=== PATIENT | female | born 1990 | race Caucasian/White ===

== ENCOUNTER 2020-07-24 00:16 | Emergency (ER) | payer BC ==
[~2020-07-24 00:16] MED LIST: BENTYL20 MG PO; CARAFATE1 GM/10 ML PO; PROTONIX40 MG PO; TRAMADOL HCL50 MG PO
[2020-07-24 02:24] LABS: HEMOGLOBIN 13.8 gm/dl (12.3-15.3); RED BLOOD COUNT 4.63 M/UL (4.00-5.10); WHITE BLOOD COUNT 8.9 K/UL (4.5-11.0)
[2020-07-24 02:36] LABS: BUN/CREATININE RATIO 24 (0-10)
[2020-07-24] MEDS ORDERED: ZOFRAN4 MG PO (04:00)
[2020-07-24] MEDS ORDERED: BENTYL 10MG CAP10 MG PO (04:05)
[2020-07-24 05:30] LABS: RED BLOOD COUNT 4.35 M/UL (4.00-5.10); WHITE BLOOD COUNT 9.6 K/UL (4.5-11.0)
[2020-07-24 06:17] LABS: BUN/CREATININE RATIO 18 (0-10)
[2020-07-24] MEDS ORDERED: IBUPROFEN800 MG PO (07:01)
== END 2020-07-24 11:02 | disposition home or self-care (01) ==
LOC: ER1 00:16
PROVIDERS: Emergency Medicine
DX: R10.84 Generalized abdominal pain (principal); R11.2 Nausea with vomiting, unspecified; Z87.19 Personal history of other diseases of the digestive system; Z88.5 Allergy status to narcotic agent; Z88.7 Allergy status to serum and vaccine; Z90.49 Acquired absence of other specified parts of digestive tract; Z98.890 Other specified postprocedural states; Z98.51 Tubal ligation status
CPT/HCPCS: 80053; 81001; 82550; 82553; 83605; 83690; 84484; 84703; 85025; 96372; 96374; 96375; 96376; 99284; J0500; J1885; J2270; J2405; J7030; Q9967

== ENCOUNTER 2021-12-24 21:51 | Emergency (ER) | payer OTHER ==
[~2021-12-24 21:51] MED LIST changes: +BENTYL 10MG CAP10 MG PO; +IBUPROFEN800 MG PO; +ZOFRAN4 MG PO
[2021-12-24 23:08] LABS: HEMOGLOBIN 15.3 gm/dl (12.3-15.3); RED BLOOD COUNT 4.99 M/UL (4.00-5.10); WHITE BLOOD COUNT 14.1 K/UL (4.5-11.0)
[2021-12-24 23:35] LABS: BUN/CREATININE RATIO 16 (0-10)
== END 2021-12-25 02:20 ==
LOC: ER1 21:51
PROVIDERS: Physician Assistant Medical
DX: S09.90XA Unspecified injury of head, initial encounter (principal); S50.812A Abrasion of left forearm, initial encounter; R00.0 Tachycardia, unspecified; I10 Essential (primary) hypertension; Z88.8 Allergy status to other drugs, medicaments and biological substances; Z88.5 Allergy status to narcotic agent; V49.40XA Driver injured in collision with unspecified motor vehicles in traffic accident, initial encounter; W22.10XA Striking against or struck by unspecified automobile airbag, initial encounter; Y92.410 Unspecified street and highway as the place of occurrence of the external cause
CPT/HCPCS: 70450; 71045; 80053; 82550; 82553; 84484; 85025; 93005; 99285

== ENCOUNTER → 2021-12-27 | Outpatient (CLI) | payer BC | LOC: RAD 12:22 | DX: S59.912A Unspecified injury of left forearm, initial encounter (principal); M79.18 Myalgia, other site | CPT/HCPCS: 73090 ==